=== PATIENT | male | born 1985 | race Caucasian/White ===

== ENCOUNTER 2019-03-26 09:12 | Day surgery (SDC) | payer OTHER ==
[~2019-03-26] VITALS: Ht 162.6 cm; Wt 90.0 kg
[2019-03-26] VITALS (13 sets, daily range): BP systolic 99–123; BP diastolic 55–79; PULSE 51–64; RESP 14–21; Ht 162.6 cm; Wt 90.0 kg
[2019-03-26] MEDS ORDERED: SOD CHLORIDE 0.9% 1,000 ML IV ONE (10:30)
[2019-03-26] MEDS ORDERED: CEFAZOLIN 2 GM/50 ML (PMX) 50 ML IVPB ONE (10:30)
--- NOTE | 2019-03-26 14:03 | PREAC ---
Date/Time of Note Date/Time of Note DATE: 03/26/19 TIME: 14:02 Anesthesia Eval and Record Evaluation Time Pre-Procedure Interview DATE: 03/26/19 TIME: 14:02 Age 33 Sex male NPO: 8 hrs Preoperative diagnosis ventral hernia Planned procedure ventral hernia repair Past Medical History Past Medical History: None Surgery & Anesthesia Issues No known issue Meds Anticoagulation: No Beta Tiana within 24 hr: No Reason Beta Tiana not given: Pt. not on B-Tiana No Active Prescriptions or Reported Meds Current Medications Sodium Chloride 1,000 ml @ 75 mls/hr [id number] ONCE IV ; Start 03/26/19 at 10:30; Stop 03/26/19 at 23:49 Meds reviewed: Yes Allergies Coded Allergies: No Known Allergy (Unverified , 03/26/19) Allergies Reviewed: Yes Labs/Studies Labs Reviewed: Reviewed by anesthesiologist Result Diagram: 03/26/19 1016 03/26/19 1017 Laboratory Tests 03/26/19 10:16 03/26/19 10:17 test: N/A Pre-procedure Exam Last vitals Vital Signs Date Temp Pulse Resp B/P (MAP) Pulse Ox O2 O2 Flow FiO2 Time Delivery Rate 03/26/19 97.4 51 16 106/61 97 Room Air 12:16 (76) Airway: Adequate mouth opening, Adequate thyromental dist Mallampati: Mallampati I Teeth: Normal Lung: Normal Heart: Normal ASA Physical Status ASA physical status: 1 Emergency: None Pre-operative Attestations Prior to commencing anesthesia and surgery, the patient was re-evaluated, there was verification of: *The patient's identity *The results of appropriate recent lab work and preoperative vital signs *The above evaluation not changing prior to induction *Anesthetic plan, risk benefits, alternative and complications discussed with patient/family; questions answered; patient/family understands, accepts and wishes to proceed. CHANEL JEAN-BAPTISTE DO Mar 26, 2019 14:03
[2019-03-26] MEDS ORDERED: CEFAZOLIN 1 GM INJ ONE (14:22)
[2019-03-26] MEDS ORDERED: ROCURONIUM 50 MG INJ ONE (14:22)
[2019-03-26] MEDS ORDERED: PROPOFOL 20 ML ONE (14:22)
[2019-03-26] MEDS ORDERED: LIDOCAINE 2% (SDV) 5 ML INJ ONE (14:22)
[2019-03-26] MEDS ORDERED: MIDAZOLAM 1 MG/ML 2 ML INJ ONE (14:23)
[2019-03-26] MEDS ORDERED: ROPIVACAINE 0.5 % 30 ML VIAL ONE (14:28)
[2019-03-26] MEDS ORDERED: ONDANSETRON 4 MG INJ ONE (14:47)
[2019-03-26] MEDS ORDERED: SUGAMMADEX SODIUM 200 MG/2 ML VIAL IV ONE (15:17)
--- NOTE | 2019-03-26 15:21 | OPR ---
Date/Time of Note Date/Time of Note DATE: 03/26/19 TIME: 15:18 Operative Report Procedure Date: Mar 26, 2019 Preoperative Diagnosis symptomatic incarcerated ventral hernia Postoperative Diagnosis none Operation/Procedure Performed 1. laparoscopic incarcerated ventral hernia repair 2. implantation of polypropylene 15 x 15 cm mesh 3. laparoscopic lysis of adhesions Surgeon see signature line Tariff Supervisor Juan Patterson Anesthesia Type: general Estimated Blood Loss: 10 - 50 ml's Transfusion none Specimen none Grafts/Implants none Complications none Pt Condition Post Procedure: stable Indications This is a 33-year-old male with an incarcerated ventral hernia. He requires surgical repair. Risks alternatives benefits and personal were discussed the patient. Potential complications including but not limited to bleeding infection mesh infection mesh migration pain recurrence of hernia need for additional operations were discussed the patient. Patient expressed understanding and consents to the operation. Procedure Description Patient is taken to the OR prepped and draped in usual sterile fashion. Surgical time was performed. IV antibiotics given. Left upper quadrant 5 mm transverse incision was made with a 15 blade. Using a 5 mm optical trocar optical entry is performed. Pneumoperitoneum was established. Left flank 12 mm optical trocar was placed under direct visualization. Left lower quadrant 5 mm optical trochars placed under direct visualization. Upon initial inspection there is incarcerated hernia contents. Laparoscopic lysis of adhesions was performed to allow meticulous dissection of the incarcerated contents and finally reduction of the hernia contents. A defect was identified in the fascia. This was closed using Endo Close and laparoscopic techniques with int errupted #1 Vicryl. After primary closure underlay mesh was secured in place with secure strap with approximate 4-5 centers of coverage with 15 x 15 cm polypropylene mesh. There is an area of bleeding in the left lower quadrant. This was controlled with 2 interrupted #1 Vicryl using Endo Close and laparoscopic techniques. After hemostasis established all ports removed under direct visualization. Skin was closed and skin willem. A tap block was provided by the anesthesiology to begin the case. Dry dressings were applied. Geraldine CANAS Mar 26, 2019 15:21
--- NOTE | 2019-03-26 15:28 | PAC ---
Date/Time of Note Date/Time of Note DATE: 03/26/19 TIME: 15:27 Post-Anesthesia Notes Post-Anesthesia Note Last documented vital signs Vital Signs Date Temp Pulse Resp B/P (MAP) Pulse Ox O2 O2 Flow FiO2 Time Delivery Rate 03/26/19 98 75 18 120/65 97 Room Air 1528 Activity: WNL Respiratory function: WNL Cardiovascular function: WNL Mental status: Baseline Pain reasonably controlled: Yes Hydration appropriate: Yes Nausea/Vomiting absent: Yes CHANEL JEAN-BAPTISTE DO Mar 26, 2019 15:28
[2019-03-26] MEDS ORDERED: HYDROCODONE/APAP (5/325) TAB PO ONE (15:30)
[2019-03-26] MEDS ORDERED: HYDROmorphONE 1 MG/5 ML IV SYRINGE IV PRN ×3 (15:30)
== END 2019-03-26 17:55 | disposition home or self-care (01) ==
LOC: SDS 09:12
PROVIDERS: ATTEND Surgery
DX: K43.6 Other and unspecified ventral hernia with obstruction, without gangrene (principal)
CPT/HCPCS: 49653; 80053; 85025; 85610; 85730; J0690; J1170; J2250; J2405; J2795; J3010; Z7512; Z7610